=== PATIENT | female | born 1950 | race Caucasian/White ===

== ENCOUNTER 2023-07-12 12:08 | Inpatient (IN) | payer OTHER, MEDICAID ==
[~2023-07-12] VITALS: Ht 160 cm; Wt 66.7 kg
[2023-07-12] MEDS ORDERED: cefTRIAXone 1 GM IVPB PREMIX 50 ML IV ONE (12:15)
[2023-07-12] MEDS ORDERED: NS 1000 ML IV.SOLN IV ONE (12:15)
[2023-07-12 12:19] VITALS: BP_SYST 87; PULSE 82; RESP 16; O2SAT 99
[2023-07-12] MEDS ORDERED: PIPERACILLIN/TAZO 3.375 GM in NS 50 ML IV ONE ×2 (12:30→15:00)
[2023-07-12 12:37] LABS: BASOPHILS % (AUTO) 1.1 % (0.0-2.0); EOSINOPHILS # (AUTO) 0.1 K/uL (0.0-0.4); EOSINOPHILS % (AUTO) 2.5 % (0.0-4.0); HEMATOCRIT 33.1 % (36-48); HEMOGLOBIN 11.1 g/dL (12.0-16.0); LYMPHOCYTES # (AUTO) 1.9 K/uL (1.0-5.5); LYMPHOCYTES % (AUTO) 53.9 % (20.5-51.5); MEAN CORPUSCULAR HEMOGLOBIN 33 pg (27-31); MEAN CORPUSCULAR HGB CONC 34 % (32-36); MEAN CORPUSCULAR VOLUME 99 fL (79.0-98.0); MONOCYTES # (AUTO) 0.3 K/uL (0.0-1.0); MONOCYTES % (AUTO) 9.2 % (1.7-9.3); NEUTROPHILS # (AUTO) 1.2 K/uL (1.8-7.7); NEUTROPHILS % (AUTO) 33.3 % (40.0-70.0); PLATELET COUNT (AUTO) 196 K/uL (130-430); RED BLOOD CELL COUNT(AUTO) 3.34 MIL/uL (4.2-6.2); RED CELL DISTRIBUTION WIDTH 14.4 % (9.0-15.0); WHITE BLOOD COUNT (AUTO) 3.5 K/uL (4.8-10.8)
[2023-07-12 12:54] LABS: INR 1.2 (0.8-1.2)
[2023-07-12] MEDS ORDERED: IBUP200T18 PO (13:04)
[2023-07-12] MEDS ORDERED: APIX5TAB PO (13:04)
[2023-07-12] MEDS ORDERED: PRO40 PO (13:04)
[2023-07-12] MEDS ORDERED: OLAN2.5T29 PO (13:04)
[2023-07-12] MEDS ORDERED: LIP20 PO (13:04)
[2023-07-12] MEDS ORDERED: FOLI-43 PO (13:04)
[2023-07-12] MEDS ORDERED: NITSL SL (13:04)
[2023-07-12] MEDS ORDERED: METO-290 PO (13:04)
[2023-07-12] MEDS ORDERED: PRAM1.5T4 PO (13:04)
[2023-07-12] MEDS ORDERED: LOSA25TA18 PO (13:04)
[2023-07-12] MEDS ORDERED: [UNRECOGNIZED DRUG - CODE] (13:04)
[2023-07-12] MEDS ORDERED: SULF1TAB48 PO (13:04)
[2023-07-12] MEDS ORDERED: MONT-40 PO (13:04)
[2023-07-12] MEDS ORDERED: GABA-529 PO (13:04)
[2023-07-12 13:11] LABS: ALANINE AMINOTRANSFERASE 20 U/L (12-78); ANION GAP 16 (5-15); ASPARTATE AMINOTRANSFERASE 69 U/L (10-37); CALCIUM 9.4 mg/dL (8.4-11.0); CARBON DIOXIDE 17 mmol/L (23-29); CHLORIDE 105 mmol/L (98-107); CREATININE 1.31 mg/dL (0.55-1.30); GLUCOSE 56 mg/dL (74-106); SODIUM SERUM 138 mmol/L (136-145); TOTAL BILIRUBIN 0.6 mg/dL (0.0-1.0); TOTAL PROTEIN, SERUM 5.2 g/dL (6.4-8.3); UREA NITROGEN, BLOOD 4 mg/dL (8-21)
[2023-07-12 13:14] LABS: POTASSIUM 2.9 mmol/L (3.5-5.1)
[2023-07-12] MEDS ORDERED: POTASSIUM CHLORIDE 20 MEQ/PKT PACKET PO ONE (13:30)
[2023-07-12] MEDS ORDERED: ASPIRIN 81 MG TABLET(ECOTRIN) PO ONE (13:30)
[2023-07-12] MEDS ORDERED: PIPERACILLIN/TAZOBACTAM 3.375 GM/VIAL (ZOSYN) IV ONE (13:33)
[2023-07-12] MEDS ORDERED: NOREPINEPHRINE BITARTRATE 4 MG in NS 246 ML IV ONE (13:45)
[2023-07-12] MEDS ORDERED: NACL 0.9% 1,000 ML IV ONE (14:00)
[2023-07-12] MEDS ORDERED: NACL 0.9% 1,000 ML IV SCH (14:00)
[2023-07-12] MEDS ORDERED: GENTAMICIN IN NACL, ISO-OSM 50 ML IV ONE (14:00)
[2023-07-12 14:53] LABS: BILIRUBIN,URINE 1+ (NEGATIVE); BLOOD, URINE 1+ (NEGATIVE); COLOR,URINE YELLOW (YELLOW); GLUCOSE,URINE NEGATIVE (NEGATIVE); KETONES,URINE 2+ (NEGATIVE); LEUKOCYTE ESTERASE ,URINE 3+ (NEGATIVE); NITRITE, URINE NEGATIVE (NEGATIVE); PROTEIN URINE 2+ (NEGATIVE); UROBILINOGEN,URINE 0.2 (0.2-1.0)
[2023-07-12 14:54] LABS: CLARITY/URINE HAZY (CLEAR)
[2023-07-12] MEDS ORDERED: KCL 40 mEq in 100 mL (PREMIX) 100 ML IV ONE (15:15)
[2023-07-12] MEDS ORDERED: NITROGLYCERIN 0.4 MG TAB.SUBL SL PRN (15:30)
[2023-07-12 16:02] LABS: WBC,URINE 20-50 /HPF (0-3)
[2023-07-12 16:03] LABS: BACTERIA,URINE MODERATE /HPF (None Seen); HYALINE CASTS, URINE 0-10 /LPF (None Seen)
[2023-07-12] MEDS ORDERED: GLUCOSE (DEXTROSE) ORAL GEL -Adults PO PRN (16:15)
[2023-07-12] MEDS ORDERED: ACETAMINOPHEN 500 MG TABLET PO PRN (16:15)
[2023-07-12] MEDS ORDERED: ACETAMINOPHEN 325 MG TABLET PO PRN (16:15)
[2023-07-12] MEDS ORDERED: DEXTROSE 50% JECT 50 ML DISP.SYRIN IVP PRN ×2 (16:15)
[2023-07-12] MEDS ORDERED: D5W 1,000 ML IV PRN (16:15)
[2023-07-12] MEDS: POTASSIUM CHLORIDE 20 mEq in 100 mL (PREMIX) 100 ML x 2 doses IV SCH ×2 (16:16→18:06)
[2023-07-12] MEDS: D5LR 1,000 ML IV SCH (16:30)
[2023-07-12] MEDS: PIPERACILLIN/TAZO 3.375/DEX-IS 50 ML IV SCH (18:22)
[2023-07-12] MEDS: MONTELUKAST 10 MG TABLET PO SCH (18:23)
[2023-07-12 21:00] VITALS: BP_SYST 145; PULSE 82; RESP 20; RESP 22; TEMP 97; O2SAT 94; O2SAT 96
[2023-07-12] MEDS: OLANZapine 2.5 MG TABLET PO SCH (21:51)
[2023-07-12] MEDS: POTASSIUM CHLORIDE 20 MEQ TAB.PRT.SR PO SCH (21:51)
[2023-07-12] MEDS: APIXABAN 2.5 MG TABLET PO SCH (21:52)
[2023-07-12] MEDS: PRAMIPEXOLE DI-HCL 0.25 MG TABLET PO SCH (21:52)
[2023-07-12 22:00] VITALS: BP_SYST 114; PULSE 82; PULSE 85; RESP 19; RESP 20; TEMP 97; O2SAT 94; O2SAT 97
[2023-07-12] MEDS: ONDANSETRON HCL 4 MG/2 ML VIAL IVP PRN (22:27)
[2023-07-12 22:53] LABS: ANION GAP 14 (5-15); CALCIUM 8.3 mg/dL (8.4-11.0); CARBON DIOXIDE 16 mmol/L (23-29); CHLORIDE 113 mmol/L (98-107); CREATININE 1.19 mg/dL (0.55-1.30); GLUCOSE 101 mg/dL (74-106); POTASSIUM 3.3 mmol/L (3.5-5.1); SODIUM SERUM 143 mmol/L (136-145); UREA NITROGEN, BLOOD 3 mg/dL (8-21)
[2023-07-12 23:00] VITALS: BP_SYST 99; PULSE 86; RESP 25; O2SAT 93
[2023-07-13] VITALS (27 sets, daily range): BP systolic 96–120; PULSE 81–112; RESP 16–26; TEMP 96.4–98.2; O2SAT 84–99
[2023-07-13] MEDS: PIPERACILLIN/TAZO 3.375/DEX-IS 50 ML IV SCH ×4 (00:37→18:23)
[2023-07-13 06:21] LABS: HEMATOCRIT 30.2 % (36-48); MEAN CORPUSCULAR HEMOGLOBIN 33 pg (27-31); MEAN CORPUSCULAR HGB CONC 33 % (32-36); MEAN CORPUSCULAR VOLUME 100 fL (79.0-98.0); PLATELET COUNT (AUTO) 175 K/uL (130-430); RED BLOOD CELL COUNT(AUTO) 3.03 MIL/uL (4.2-6.2); RED CELL DISTRIBUTION WIDTH 14.2 % (9.0-15.0); WHITE BLOOD COUNT (AUTO) 2.2 K/uL (4.8-10.8)
[2023-07-13 06:34] LABS: ALANINE AMINOTRANSFERASE 16 U/L (12-78); ALBUMIN 1.8 g/dL (3.4-4.8); ANION GAP 14 (5-15); ASPARTATE AMINOTRANSFERASE 62 U/L (10-37); CALCIUM 8.4 mg/dL (8.4-11.0); CARBON DIOXIDE 17 mmol/L (23-29); CHLORIDE 112 mmol/L (98-107); CREATININE 1.12 mg/dL (0.55-1.30); GLUCOSE 95 mg/dL (74-106); POTASSIUM 3.3 mmol/L (3.5-5.1); SODIUM SERUM 143 mmol/L (136-145); TOTAL BILIRUBIN 0.4 mg/dL (0.0-1.0); TOTAL PROTEIN, SERUM 4.3 g/dL (6.4-8.3); UREA NITROGEN, BLOOD 2 mg/dL (8-21)
[2023-07-13 06:48] LABS: PHOSPHORUS 4.3 mg/dL (2.7-4.5)
[2023-07-13 07:46] LABS: CHOLESTEROL 66 mg/dL (<200); HDL CHOLESTEROL 28 mg/dL (>55); TRIGLYCERIDES 96 mg/dL (30-150)
[2023-07-13] MEDS: D5LR 1,000 ML IV SCH ×3 (08:02→22:30)
[2023-07-13] MEDS: APIXABAN 2.5 MG TABLET PO SCH ×2 (09:00→21:00)
[2023-07-13] MEDS: GABAPENTIN 100 MG CAPSULE PO SCH (09:00)
[2023-07-13] MEDS: POTASSIUM CHLORIDE 20 MEQ TAB.PRT.SR PO SCH ×2 (09:00→21:00)
[2023-07-13] MEDS: ATORVASTATIN 20 MG TABLET PO SCH (09:00)
[2023-07-13] MEDS: FOLIC ACID 1 MG TABLET PO SCH (09:00)
[2023-07-13] MEDS: PANTOPRAZOLE SODIUM 40 MG TAB PO SCH (09:00)
[2023-07-13 10:01] LABS: BAND % (MANUAL) 2 % (0-6); BASOPHILS % (MANUAL) 0 % (0-2); EOSINOPHILS % (MANUAL) 1 % (0-7); LYMPHOCYTES % (MANUAL) 63 % (20-46); MONOCYTES % (MANUAL) 6 % (0-11); PLATELET ESTIMATE ADEQUATE (ADEQUATE)
[2023-07-13] MEDS ORDERED: KCL 40 mEq in 100 mL (PREMIX) 100 ML IV ONE (11:15)
[2023-07-13 11:18] LABS: INR 1.1 (0.8-1.2); PROTHROMBIN TIME 11.6 SECS (9.5-12.5)
[2023-07-13] MEDS ORDERED: MAGNESIUM SULFATE 50 ML IV ONE (11:30)
[2023-07-13] MEDS: POTASSIUM CHLORIDE 20 mEq in 100 mL (PREMIX) 100 ML x 2 doses IV SCH ×2 (11:51→14:07)
[2023-07-13 12:04] LABS: ABG O2 SAT% ESTIMATE 97.9 % (94.0-100.0); BLOOD GAS PCO2 31.3 mmHg (35.0-45.0); BLOOD GAS PH 7.335 (7.350-7.450); BLOOD GAS PO2 112.8 mmHg (75.0-100.0)
[2023-07-13 12:07] LABS: BLOOD GAS BASE EXCESS -8.2 mmol/L (-3.0-3.0); BLOOD GAS HCO3 16.3 mmol/L (21.0-27.0)
[2023-07-13 12:08] LABS: ALLEN'S TEST POSITIVE (P)
[2023-07-13] MEDS: IPRATROPIUM/ALBUTEROL SULFATE 3 ML AMPUL.NEB (DUONEB) INH SCH ×2 (13:00→19:30)
[2023-07-13] MEDS ORDERED: SODIUM BICARBONATE 8.4% JECT 50 MEQ/50 ML SYRINGE IVP ONE (14:00)
[2023-07-13] MEDS: MICAFUNGIN SODIUM 150 MG in NS 100 ML IV SCH (14:02)
[2023-07-13] MEDS: MONTELUKAST 10 MG TABLET PO SCH (15:57)
[2023-07-13] MEDS ORDERED: NOREPINEPHRINE BITARTRATE 4 MG in NS 246 ML IV PRN (16:15)
[2023-07-13 20:05] LABS: BILIRUBIN,URINE 2+ (NEGATIVE); COLOR,URINE YELLOW (YELLOW); GLUCOSE,URINE NEGATIVE (NEGATIVE); KETONES,URINE 1+ (NEGATIVE); LEUKOCYTE ESTERASE ,URINE 1+ (NEGATIVE); NITRITE, URINE NEGATIVE (NEGATIVE); PROTEIN URINE 1+ (NEGATIVE); UROBILINOGEN,URINE 0.2 (0.2-1.0)
[2023-07-13 20:08] LABS: BLOOD, URINE TRACE (NEGATIVE); CLARITY/URINE SLIGHTLY HAZY (CLEAR)
[2023-07-13 20:27] LABS: BACTERIA,URINE FEW /HPF (None Seen); COARSE GRANULAR CASTS,URINE 0-10 /LPF (None Seen); MUCUS,URINE None Seen /LPF (None Seen); RBC,URINE 0-3 /HPF (0-3); YEAST,URINE Few /HPF (None Seen)
[2023-07-13] MEDS: OLANZapine 2.5 MG TABLET PO SCH (21:00)
[2023-07-13] MEDS: PRAMIPEXOLE DI-HCL 0.25 MG TABLET PO SCH (21:00)
[2023-07-14] VITALS (30 sets, daily range): BP systolic 93–132; PULSE 85–114; RESP 14–38; TEMP 97.1–98.5; O2SAT 2–100
[2023-07-14] MEDS: BUDESONIDE 0.5 MG/2 ML AMPUL.NEB INH SCH ×3 (00:54→20:05)
[2023-07-14] MEDS: IPRATROPIUM/ALBUTEROL SULFATE 3 ML AMPUL.NEB (DUONEB) INH SCH ×4 (00:55→19:16)
[2023-07-14] MEDS: PIPERACILLIN/TAZO 3.375/DEX-IS 50 ML IV SCH ×4 (02:04→17:17)
[2023-07-14 05:29] LABS: BASOPHILS % (AUTO) 0.8 % (0.0-2.0); EOSINOPHILS # (AUTO) 0.1 K/uL (0.0-0.4); EOSINOPHILS % (AUTO) 3.4 % (0.0-4.0); HEMATOCRIT 31.9 % (36-48); HEMOGLOBIN 10.8 g/dL (12.0-16.0); LYMPHOCYTES # (AUTO) 1.5 K/uL (1.0-5.5); LYMPHOCYTES % (AUTO) 40.3 % (20.5-51.5); MEAN CORPUSCULAR HEMOGLOBIN 33 pg (27-31); MEAN CORPUSCULAR HGB CONC 34 % (32-36); MEAN CORPUSCULAR VOLUME 98 fL (79.0-98.0); MONOCYTES # (AUTO) 0.6 K/uL (0.0-1.0); MONOCYTES % (AUTO) 15.8 % (1.7-9.3); NEUTROPHILS # (AUTO) 1.5 K/uL (1.8-7.7); NEUTROPHILS % (AUTO) 39.7 % (40.0-70.0); PLATELET COUNT (AUTO) 162 K/uL (130-430); RED BLOOD CELL COUNT(AUTO) 3.27 MIL/uL (4.2-6.2); RED CELL DISTRIBUTION WIDTH 14.2 % (9.0-15.0); WHITE BLOOD COUNT (AUTO) 3.7 K/uL (4.8-10.8)
[2023-07-14 06:21] LABS: ALANINE AMINOTRANSFERASE 12 U/L (12-78); ALBUMIN 1.7 g/dL (3.4-4.8); ANION GAP 9 (5-15); ASPARTATE AMINOTRANSFERASE 52 U/L (10-37); CALCIUM 8.7 mg/dL (8.4-11.0); CARBON DIOXIDE 24 mmol/L (23-29); CHLORIDE 113 mmol/L (98-107); GLUCOSE 123 mg/dL (74-106); SODIUM SERUM 146 mmol/L (136-145); TOTAL BILIRUBIN 0.5 mg/dL (0.0-1.0); TOTAL PROTEIN, SERUM 4.8 g/dL (6.4-8.3); UREA NITROGEN, BLOOD 1 mg/dL (8-21)
[2023-07-14 06:27] LABS: POTASSIUM 2.7 mmol/L (3.5-5.1)
[2023-07-14] MEDS: D5LR 1,000 ML IV SCH (08:51)
[2023-07-14] MEDS: APIXABAN 2.5 MG TABLET PO SCH (09:00)
[2023-07-14] MEDS: FOLIC ACID 1 MG TABLET PO SCH ×2 (09:00→09:21)
[2023-07-14] MEDS: ATORVASTATIN 20 MG TABLET PO SCH (09:20)
[2023-07-14] MEDS: PANTOPRAZOLE SODIUM 40 MG TAB PO SCH (09:20)
[2023-07-14] MEDS: GABAPENTIN 100 MG CAPSULE PO SCH (09:21)
[2023-07-14] MEDS: POTASSIUM CHLORIDE 20 MEQ TAB.PRT.SR PO SCH ×2 (09:21→21:25)
[2023-07-14] MEDS ORDERED: ENOXAPARIN SODIUM 40 MG/0.4 ML SYRINGE SUBCUT ONE (13:30)
[2023-07-14] MEDS ORDERED: KCL 40 mEq in 100 mL (PREMIX) 100 ML IV ONE (13:30)
[2023-07-14] MEDS: MICAFUNGIN SODIUM 150 MG in NS 100 ML IV SCH (14:26)
[2023-07-14] MEDS: ALBUMIN HUMAN 25% 50 ML IV SCH ×3 (14:27→23:10)
[2023-07-14] MEDS: KCL 20 mEq in 100 mL (PREMIX) 100 ML IV SCH ×2 (14:29→17:15)
[2023-07-14] MEDS: KCL 40 mEq in D5W 1000 mL 1,000 ML IV SCH (14:30)
[2023-07-14] MEDS: ONDANSETRON HCL 4 MG/2 ML VIAL IVP PRN (14:38)
[2023-07-14] MEDS: MONTELUKAST 10 MG TABLET PO SCH (17:25)
[2023-07-14] MEDS: OLANZapine 2.5 MG TABLET PO SCH (21:25)
[2023-07-14] MEDS: PRAMIPEXOLE DI-HCL 0.25 MG TABLET PO SCH (21:27)
[2023-07-15] VITALS (22 sets, daily range): BP systolic 94–129; PULSE 69–116; RESP 12–39; TEMP 97.3–98.4; O2SAT 90–99
[2023-07-15] MEDS: PIPERACILLIN/TAZO 3.375/DEX-IS 50 ML IV SCH ×2 (00:33→04:59)
[2023-07-15] MEDS: IPRATROPIUM/ALBUTEROL SULFATE 3 ML AMPUL.NEB (DUONEB) INH SCH ×4 (00:40→20:25)
[2023-07-15 04:57] LABS: EOSINOPHILS # (AUTO) 0.1 K/uL (0.0-0.4); EOSINOPHILS % (AUTO) 2.4 % (0.0-4.0); HEMATOCRIT 24.6 % (36-48); HEMOGLOBIN 8.3 g/dL (12.0-16.0); LYMPHOCYTES # (AUTO) 1.3 K/uL (1.0-5.5); LYMPHOCYTES % (AUTO) 56.2 % (20.5-51.5); MEAN CORPUSCULAR HEMOGLOBIN 33 pg (27-31); MEAN CORPUSCULAR HGB CONC 34 % (32-36); MEAN CORPUSCULAR VOLUME 97 fL (79.0-98.0); MONOCYTES # (AUTO) 0.3 K/uL (0.0-1.0); MONOCYTES % (AUTO) 13.1 % (1.7-9.3); NEUTROPHILS % (AUTO) 28.3 % (40.0-70.0); PLATELET COUNT (AUTO) 126 K/uL (130-430); RED BLOOD CELL COUNT(AUTO) 2.54 MIL/uL (4.2-6.2); RED CELL DISTRIBUTION WIDTH 13.9 % (9.0-15.0); WHITE BLOOD COUNT (AUTO) 2.4 K/uL (4.8-10.8)
[2023-07-15] MEDS: KCL 40 mEq in D5W 1000 mL 1,000 ML IV SCH ×3 (05:00→21:36)
[2023-07-15 05:02] LABS: NEUTROPHILS # (AUTO) 0.7 K/uL (1.8-7.7)
[2023-07-15 05:22] LABS: ANION GAP 8 (5-15); CALCIUM 9.2 mg/dL (8.4-11.0); CARBON DIOXIDE 24 mmol/L (23-29); CHLORIDE 111 mmol/L (98-107); CREATININE 0.96 mg/dL (0.55-1.30); GLUCOSE 111 mg/dL (74-106); SODIUM SERUM 143 mmol/L (136-145); UREA NITROGEN, BLOOD 1 mg/dL (8-21)
[2023-07-15 05:33] LABS: POTASSIUM 2.9 mmol/L (3.5-5.1)
[2023-07-15] MEDS: BUDESONIDE 0.5 MG/2 ML AMPUL.NEB INH SCH ×2 (09:00→20:26)
[2023-07-15] MEDS: PANTOPRAZOLE SODIUM 40 MG TAB PO SCH (09:00)
[2023-07-15] MEDS: ATORVASTATIN 20 MG TABLET PO SCH (09:00)
[2023-07-15] MEDS: GABAPENTIN 100 MG CAPSULE PO SCH (09:00)
[2023-07-15] MEDS: POTASSIUM CHLORIDE 20 MEQ TAB.PRT.SR PO SCH ×3 (09:00→21:37)
[2023-07-15] MEDS: ENOXAPARIN SODIUM 40 MG/0.4 ML SYRINGE SUBCUT SCH (10:53)
[2023-07-15] MEDS ORDERED: KCL 40 mEq in 100 mL (PREMIX) 100 ML IV ONE (12:15)
[2023-07-15] MEDS: POTASSIUM CHLORIDE 20 mEq in 100 mL (PREMIX) 100 ML x 2 doses IV SCH ×2 (12:50→16:09)
[2023-07-15] MEDS: MICAFUNGIN SODIUM 150 MG in NS 100 ML IV SCH (14:10)
[2023-07-15] MEDS ORDERED: DEXTROSE 50% JECT 50 ML DISP.SYRIN IVP PRN (16:45)
[2023-07-15] MEDS ORDERED: *TPN PER PHARMACY XX PRN (16:45)
[2023-07-15 16:57] LABS: ABG O2 SAT% ESTIMATE 91.4 % (94.0-100.0); BLOOD GAS BASE EXCESS -1.6 mmol/L (-3.0-3.0); BLOOD GAS HCO3 23.2 mmol/L (21.0-27.0); BLOOD GAS PCO2 39.4 mmHg (35.0-45.0); BLOOD GAS PH 7.387 (7.350-7.450); BLOOD GAS PO2 61.6 mmHg (75.0-100.0)
[2023-07-15 17:04] LABS: ALLEN'S TEST POSITIVE (P)
[2023-07-15] MEDS: MONTELUKAST 10 MG TABLET PO SCH (18:00)
[2023-07-15] MEDS: CEFEPIME 2 GM in D5W 100 ML IV SCH (21:37)
[2023-07-15] MEDS: PRAMIPEXOLE DI-HCL 0.25 MG TABLET PO SCH (21:37)
[2023-07-15] MEDS: OLANZapine 2.5 MG TABLET PO SCH (21:37)
[2023-07-16] VITALS (25 sets, daily range): BP systolic 118–158; PULSE 99–133; RESP 20–25; TEMP 98.2–99.2; O2SAT 94–100
[2023-07-16] MEDS: METOCLOPRAMIDE HCL 10 MG/2 ML VIAL IVP SCH ×4 (00:31→18:24)
[2023-07-16] MEDS: IPRATROPIUM/ALBUTEROL SULFATE 3 ML AMPUL.NEB (DUONEB) INH SCH ×4 (01:46→20:05)
[2023-07-16] MEDS ORDERED: DEXAMETHASONE SOD PHOSPHATE 4 MG/ML VIAL IVP ONE (05:30)
[2023-07-16] MEDS ORDERED: DIPHENHYDRAMINE INJ 50 MG/ML VIAL IVP ONE (05:30)
[2023-07-16 05:59] LABS: BASOPHILS % (AUTO) 0.8 % (0.0-2.0); EOSINOPHILS # (AUTO) 0.1 K/uL (0.0-0.4); EOSINOPHILS % (AUTO) 3.7 % (0.0-4.0); HEMATOCRIT 27.7 % (36-48); HEMOGLOBIN 9.2 g/dL (12.0-16.0); LYMPHOCYTES # (AUTO) 1.4 K/uL (1.0-5.5); LYMPHOCYTES % (AUTO) 39.9 % (20.5-51.5); MEAN CORPUSCULAR HEMOGLOBIN 33 pg (27-31); MEAN CORPUSCULAR HGB CONC 33 % (32-36); MEAN CORPUSCULAR VOLUME 98 fL (79.0-98.0); MONOCYTES # (AUTO) 0.6 K/uL (0.0-1.0); MONOCYTES % (AUTO) 17.1 % (1.7-9.3); NEUTROPHILS # (AUTO) 1.4 K/uL (1.8-7.7); NEUTROPHILS % (AUTO) 38.5 % (40.0-70.0); PLATELET COUNT (AUTO) 141 K/uL (130-430); RED BLOOD CELL COUNT(AUTO) 2.83 MIL/uL (4.2-6.2); RED CELL DISTRIBUTION WIDTH 13.8 % (9.0-15.0); WHITE BLOOD COUNT (AUTO) 3.6 K/uL (4.8-10.8)
[2023-07-16] MEDS: KCL 40 mEq in D5W 1000 mL 1,000 ML IV SCH ×3 (06:00→21:04)
[2023-07-16 06:23] LABS: ALANINE AMINOTRANSFERASE 12 U/L (12-78); ALBUMIN 2.2 g/dL (3.4-4.8); ANION GAP 10 (5-15); ASPARTATE AMINOTRANSFERASE 43 U/L (10-37); CALCIUM 9.9 mg/dL (8.4-11.0); CARBON DIOXIDE 23 mmol/L (23-29); CHLORIDE 109 mmol/L (98-107); CHOLESTEROL < 50 mg/dL (<200); GLUCOSE 105 mg/dL (74-106); HDL CHOLESTEROL 22 mg/dL (>55); PHOSPHORUS 3.7 mg/dL (2.7-4.5); SODIUM SERUM 142 mmol/L (136-145); TOTAL BILIRUBIN 0.8 mg/dL (0.0-1.0); TOTAL PROTEIN, SERUM 4.9 g/dL (6.4-8.3); TRIGLYCERIDES 85 mg/dL (30-150); UREA NITROGEN, BLOOD 1 mg/dL (8-21)
[2023-07-16] MEDS: BUDESONIDE 0.5 MG/2 ML AMPUL.NEB INH SCH ×2 (07:53→21:02)
[2023-07-16] MEDS: POTASSIUM CHLORIDE 20 MEQ TAB.PRT.SR PO SCH ×2 (08:32→21:42)
[2023-07-16] MEDS: ATORVASTATIN 20 MG TABLET PO SCH (08:32)
[2023-07-16] MEDS: FOLIC ACID 1 MG TABLET PO SCH (08:32)
[2023-07-16] MEDS: GABAPENTIN 100 MG CAPSULE PO SCH (08:33)
[2023-07-16] MEDS: ENOXAPARIN SODIUM 40 MG/0.4 ML SYRINGE SUBCUT SCH (08:33)
[2023-07-16] MEDS: PANTOPRAZOLE SODIUM 40 MG TAB PO SCH (08:33)
[2023-07-16] MEDS: CEFEPIME 2 GM in D5W 100 ML IV SCH ×2 (09:00→21:50)
[2023-07-16] MEDS ORDERED: MIDAZOLAM HCL 5 MG/5 ML VIAL ONE (09:24)
[2023-07-16] MEDS ORDERED: fentaNYL CITRATE/PF 100 MCG/2 ML AMP ONE (09:24)
[2023-07-16] MEDS ORDERED: SUCCINYLCHOLINE CHLORIDE 20 MG/ML(QUELICIN) IVP ONE (10:45)
[2023-07-16] MEDS ORDERED: ETOMIDATE 20 MG/ 10 ML VIAL (AMIDATE) IVP ONE (10:45)
[2023-07-16] MEDS ORDERED: PROPOFOL DRIP 100 ML IV ONE (11:15)
[2023-07-16 11:28] LABS: ABG O2 SAT% ESTIMATE 99.8 % (94.0-100.0); BLOOD GAS BASE EXCESS -4.2 mmol/L (-3.0-3.0); BLOOD GAS PCO2 33.5 mmHg (35.0-45.0); BLOOD GAS PO2 369.4 mmHg (75.0-100.0)
[2023-07-16 11:31] LABS: ALLEN'S TEST POSITIVE (P)
[2023-07-16 11:35] LABS: BLOOD GAS HCO3 19.8 mmol/L (21.0-27.0)
[2023-07-16] MEDS ORDERED: ALBUTEROL SULFATE 0.083% 2.5 MG/3 ML VIAL.NEB INH ONE (11:44)
[2023-07-16 12:34] LABS: ABG O2 SAT% ESTIMATE 32.3 % (94.0-100.0); BLOOD GAS BASE EXCESS -12.7 mmol/L (-3.0-3.0); BLOOD GAS HCO3 23.7 mmol/L (21.0-27.0); BLOOD GAS PCO2 127.6 mmHg (35.0-45.0); BLOOD GAS PH 6.887 (7.350-7.450); BLOOD GAS PO2 33.9 mmHg (75.0-100.0)
[2023-07-16 12:35] LABS: ALLEN'S TEST POSITIVE (P)
[2023-07-16] MEDS: INSULIN REGULAR, HUMAN 100 UNITS/ML, 3 ML VIAL (humuLIN R) SUBCUT PRN ×2 (13:36→18:14)
[2023-07-16] MEDS: MICAFUNGIN SODIUM 150 MG in NS 100 ML IV SCH (14:19)
[2023-07-16] MEDS ORDERED: MORPHINE 2 MG/ML INJ. SYRINGE IVP PRN (17:45)
[2023-07-16] MEDS ORDERED: NALOXONE HCL 0.4 MG/ML AMP (NARCAN) IVP PRN (17:45)
[2023-07-16] MEDS ORDERED: MORPHINE 4 MG INJ. 4 MG/ML VIAL IVP PRN (17:45)
[2023-07-16] MEDS: MONTELUKAST 10 MG TABLET PO SCH (18:16)
[2023-07-16] MEDS: METOCLOPRAMIDE HCL 10 MG TABLET PO PRN ×4 (18:16→18:19)
[2023-07-16 18:45] LABS: FREE T4 (FREE THYROXINE) 1.1 ng/dL (0.6-1.6); THYROID STIMULATING HORMONE 2.43 uIu/mL (0.34-4.82)
[2023-07-16] MEDS ORDERED: MAGNESIUM SULFATE 4 GM in D5W 250 ML IV ONE (20:00)
[2023-07-16] MEDS: PROPOFOL DRIP 100 ML IV PRN (20:58)
[2023-07-16] MEDS ORDERED: POTASSIUM ACETATE IV SCH ×8 (21:00)
[2023-07-16] MEDS ORDERED: TPN CENTRAL IV SCH ×8 (21:00)
[2023-07-16] MEDS ORDERED: [UNRECOGNIZED DRUG - OTHER] IV SCH ×8 (21:00)
[2023-07-16] MEDS ORDERED: K PHOS IV SCH ×8 (21:00)
[2023-07-16] MEDS: METHYLPREDNISOLONE SOD SUCC 40 MG/ML VIAL IVP SCH (21:00)
[2023-07-16] MEDS ORDERED: MAGNESIUM SULFATE IV SCH ×8 (21:00)
[2023-07-16] MEDS ORDERED: METOPROLOL TARTRATE 5 MG/5 ML VIAL IVP PRN (21:30)
[2023-07-16] MEDS: PRAMIPEXOLE DI-HCL 0.25 MG TABLET PO SCH (21:42)
[2023-07-16] MEDS: OLANZapine 2.5 MG TABLET PO SCH (21:42)
[2023-07-16] MEDS ORDERED: METOPROLOL TARTRATE 5 MG/5 ML VIAL ONE (21:56)
[2023-07-17] VITALS (36 sets, daily range): BP systolic 116–158; PULSE 86–109; RESP 19–21; TEMP 97.1–98.5; O2SAT 96–100
[2023-07-17] MEDS: METOCLOPRAMIDE HCL 10 MG/2 ML VIAL IVP SCH ×5 (00:36→23:37)
[2023-07-17] MEDS: IPRATROPIUM/ALBUTEROL SULFATE 3 ML AMPUL.NEB (DUONEB) INH SCH ×4 (01:03→19:59)
[2023-07-17] MEDS: PROPOFOL DRIP 100 ML IV PRN ×4 (02:23→21:04)
[2023-07-17 04:53] LABS: BASOPHILS % (AUTO) 0.5 % (0.0-2.0); EOSINOPHILS # (AUTO) 0.1 K/uL (0.0-0.4); EOSINOPHILS % (AUTO) 1.9 % (0.0-4.0); HEMATOCRIT 29.8 % (36-48); HEMOGLOBIN 10.2 g/dL (12.0-16.0); LYMPHOCYTES # (AUTO) 0.6 K/uL (1.0-5.5); LYMPHOCYTES % (AUTO) 14.3 % (20.5-51.5); MEAN CORPUSCULAR HEMOGLOBIN 33 pg (27-31); MEAN CORPUSCULAR HGB CONC 34 % (32-36); MEAN CORPUSCULAR VOLUME 97 fL (79.0-98.0); MONOCYTES # (AUTO) 0.4 K/uL (0.0-1.0); MONOCYTES % (AUTO) 8.2 % (1.7-9.3); NEUTROPHILS # (AUTO) 3.3 K/uL (1.8-7.7); NEUTROPHILS % (AUTO) 75.1 % (40.0-70.0); PLATELET COUNT (AUTO) 173 K/uL (130-430); RED BLOOD CELL COUNT(AUTO) 3.08 MIL/uL (4.2-6.2); RED CELL DISTRIBUTION WIDTH 13.5 % (9.0-15.0); WHITE BLOOD COUNT (AUTO) 4.5 K/uL (4.8-10.8)
[2023-07-17 05:17] LABS: ALANINE AMINOTRANSFERASE 9 U/L (12-78); ALBUMIN 2.3 g/dL (3.4-4.8); ANION GAP 8 (5-15); ASPARTATE AMINOTRANSFERASE 37 U/L (10-37); CARBON DIOXIDE 25 mmol/L (23-29); CHLORIDE 108 mmol/L (98-107); CREATININE 0.79 mg/dL (0.55-1.30); GLUCOSE 167 mg/dL (74-106); PHOSPHORUS 2.9 mg/dL (2.7-4.5); POTASSIUM 4.6 mmol/L (3.5-5.1); SODIUM SERUM 141 mmol/L (136-145); TOTAL BILIRUBIN 0.7 mg/dL (0.0-1.0); TOTAL IRON BIND. CAPACITY 56 ug/dL (250-450); TOTAL PROTEIN, SERUM 5.3 g/dL (6.4-8.3); UREA NITROGEN, BLOOD 3 mg/dL (8-21)
[2023-07-17] MEDS: ATORVASTATIN 20 MG TABLET PO SCH (08:39)
[2023-07-17] MEDS: FOLIC ACID 1 MG TABLET PO SCH (08:40)
[2023-07-17] MEDS: GABAPENTIN 100 MG CAPSULE PO SCH (08:41)
[2023-07-17] MEDS: METHYLPREDNISOLONE SOD SUCC 40 MG/ML VIAL IVP SCH ×2 (08:41→21:01)
[2023-07-17] MEDS: PANTOPRAZOLE SODIUM 40 MG TAB PO SCH (08:41)
[2023-07-17] MEDS: CEFEPIME 2 GM in D5W 100 ML IV SCH ×2 (08:42→21:01)
[2023-07-17] MEDS: ENOXAPARIN SODIUM 40 MG/0.4 ML SYRINGE SUBCUT SCH (08:43)
[2023-07-17] MEDS: POTASSIUM CHLORIDE 20 MEQ TAB.PRT.SR PO SCH ×2 (08:43→21:01)
[2023-07-17 10:02] LABS: ABG O2 SAT% ESTIMATE 98.3 % (94.0-100.0); BLOOD GAS BASE EXCESS -0.4 mmol/L (-3.0-3.0); BLOOD GAS HCO3 22.1 mmol/L (21.0-27.0); BLOOD GAS PCO2 30.7 mmHg (35.0-45.0); BLOOD GAS PH 7.475 (7.350-7.450); BLOOD GAS PO2 107.3 mmHg (75.0-100.0)
[2023-07-17 10:08] LABS: ALLEN'S TEST POSITIVE (P)
[2023-07-17] MEDS: BUDESONIDE 0.5 MG/2 ML AMPUL.NEB INH SCH ×2 (10:15→20:21)
[2023-07-17] MEDS ORDERED: SODIUM CHLORIDE IV SCH ×16 (10:45→21:00)
[2023-07-17] MEDS ORDERED: [UNRECOGNIZED DRUG - OTHER] IV SCH ×16 (10:45→21:00)
[2023-07-17] MEDS ORDERED: POTASSIUM ACETATE IV SCH ×16 (10:45→21:00)
[2023-07-17] MEDS ORDERED: TPN CENTRAL IV SCH ×16 (10:45→21:00)
[2023-07-17] MEDS ORDERED: K PHOS IV SCH ×16 (10:45→21:00)
[2023-07-17] MEDS: INSULIN REGULAR, HUMAN 100 UNITS/ML, 3 ML VIAL (humuLIN R) SUBCUT PRN ×3 (11:44→23:39)
[2023-07-17] MEDS: MICAFUNGIN SODIUM 150 MG in NS 100 ML IV SCH (13:59)
[2023-07-17] MEDS: KCL 40 mEq in D5W 1000 mL 1,000 ML IV SCH (14:03)
[2023-07-17] MEDS: metroNIDAZOLE 500 mg/NS 100 ML IV SCH ×2 (15:14→21:00)
[2023-07-17] MEDS: MONTELUKAST 10 MG TABLET PO SCH (17:43)
[2023-07-17] MEDS ORDERED: FUROSEMIDE 40 MG/4 ML VIAL ONE (18:40)
[2023-07-17] MEDS: OLANZapine 2.5 MG TABLET PO SCH (21:02)
[2023-07-17] MEDS: PRAMIPEXOLE DI-HCL 0.25 MG TABLET PO SCH (21:02)
[2023-07-18] VITALS (35 sets, daily range): BP systolic 101–172; PULSE 87–120; RESP 16–32; TEMP 97.5–99.5; O2SAT 94–99
[2023-07-18] MEDS: IPRATROPIUM/ALBUTEROL SULFATE 3 ML AMPUL.NEB (DUONEB) INH SCH ×4 (01:13→19:39)
[2023-07-18] MEDS: PROPOFOL DRIP 100 ML IV PRN ×3 (03:15→18:24)
[2023-07-18 05:21] LABS: BASOPHILS % (AUTO) 1.1 % (0.0-2.0); HEMATOCRIT 26.6 % (36-48); HEMOGLOBIN 8.9 g/dL (12.0-16.0); LYMPHOCYTES # (AUTO) 0.3 K/uL (1.0-5.5); LYMPHOCYTES % (AUTO) 8.8 % (20.5-51.5); MEAN CORPUSCULAR HEMOGLOBIN 33 pg (27-31); MEAN CORPUSCULAR HGB CONC 34 % (32-36); MEAN CORPUSCULAR VOLUME 99 fL (79.0-98.0); MONOCYTES # (AUTO) 0.1 K/uL (0.0-1.0); MONOCYTES % (AUTO) 3.4 % (1.7-9.3); NEUTROPHILS # (AUTO) 3.2 K/uL (1.8-7.7); NEUTROPHILS % (AUTO) 86.7 % (40.0-70.0); PLATELET COUNT (AUTO) 174 K/uL (130-430); RED CELL DISTRIBUTION WIDTH 13.4 % (9.0-15.0); WHITE BLOOD COUNT (AUTO) 3.7 K/uL (4.8-10.8)
[2023-07-18] MEDS: METOCLOPRAMIDE HCL 10 MG/2 ML VIAL IVP SCH ×4 (05:28→23:40)
[2023-07-18] MEDS: metroNIDAZOLE 500 mg/NS 100 ML IV SCH ×3 (05:28→23:40)
[2023-07-18] MEDS: INSULIN REGULAR, HUMAN 100 UNITS/ML, 3 ML VIAL (humuLIN R) SUBCUT PRN ×4 (05:32→23:52)
[2023-07-18 06:31] LABS: ALANINE AMINOTRANSFERASE 7 U/L (12-78); ALBUMIN 1.9 g/dL (3.4-4.8); ANION GAP 6 (5-15); ASPARTATE AMINOTRANSFERASE 38 U/L (10-37); CALCIUM 8.9 mg/dL (8.4-11.0); CARBON DIOXIDE 24 mmol/L (23-29); CHLORIDE 107 mmol/L (98-107); CREATININE 0.83 mg/dL (0.55-1.30); GLUCOSE 212 mg/dL (74-106); PHOSPHORUS 3.2 mg/dL (2.7-4.5); POTASSIUM 4.7 mmol/L (3.5-5.1); SODIUM SERUM 137 mmol/L (136-145); TOTAL BILIRUBIN 0.4 mg/dL (0.0-1.0); TOTAL PROTEIN, SERUM 4.8 g/dL (6.4-8.3); UREA NITROGEN, BLOOD 11 mg/dL (8-21)
[2023-07-18] MEDS: BUDESONIDE 0.5 MG/2 ML AMPUL.NEB INH SCH ×2 (07:20→19:39)
[2023-07-18 08:06] LABS: FOLATE (FOLIC ACID) 11.7 ng/mL (>3.0)
[2023-07-18] MEDS: FOLIC ACID 1 MG TABLET PO SCH (08:47)
[2023-07-18] MEDS: GABAPENTIN 100 MG CAPSULE PO SCH (08:47)
[2023-07-18] MEDS: ATORVASTATIN 20 MG TABLET PO SCH (08:48)
[2023-07-18] MEDS: POTASSIUM CHLORIDE 20 MEQ TAB.PRT.SR PO SCH ×2 (08:48→20:36)
[2023-07-18] MEDS: CEFEPIME 2 GM in D5W 100 ML IV SCH ×2 (08:48→20:34)
[2023-07-18] MEDS: PANTOPRAZOLE SODIUM 40 MG TAB PO SCH (08:48)
[2023-07-18] MEDS: METHYLPREDNISOLONE SOD SUCC 40 MG/ML VIAL IVP SCH ×2 (08:49→20:35)
[2023-07-18] MEDS: ENOXAPARIN SODIUM 40 MG/0.4 ML SYRINGE SUBCUT SCH (08:50)
[2023-07-18 15:20] LABS: ABG O2 SAT% ESTIMATE 97.1 % (94.0-100.0); BLOOD GAS BASE EXCESS -1.7 mmol/L (-3.0-3.0); BLOOD GAS HCO3 21.1 mmol/L (21.0-27.0); BLOOD GAS PCO2 30.8 mmHg (35.0-45.0); BLOOD GAS PH 7.453 (7.350-7.450); BLOOD GAS PO2 86.9 mmHg (75.0-100.0)
[2023-07-18 15:21] LABS: ALLEN'S TEST POSITIVE (P)
[2023-07-18] MEDS: MICAFUNGIN SODIUM 150 MG in NS 100 ML IV SCH (16:27)
[2023-07-18] MEDS: MONTELUKAST 10 MG TABLET PO SCH ×2 (17:50→18:00)
[2023-07-18] MEDS: OLANZapine 2.5 MG TABLET PO SCH (20:37)
[2023-07-18] MEDS: PRAMIPEXOLE DI-HCL 0.25 MG TABLET PO SCH (20:37)
[2023-07-18] MEDS ORDERED: FUROSEMIDE 40 MG/4 ML VIAL ONE (20:49)
[2023-07-19] VITALS (32 sets, daily range): BP systolic 110–170; PULSE 75–108; RESP 19–28; TEMP 97.3–98.6; O2SAT 94–98
[2023-07-19] MEDS: INSULIN REGULAR, HUMAN 100 UNITS/ML, 3 ML VIAL (humuLIN R) SUBCUT PRN ×2 (00:04→17:52)
[2023-07-19] MEDS: IPRATROPIUM/ALBUTEROL SULFATE 3 ML AMPUL.NEB (DUONEB) INH SCH ×4 (01:02→19:20)
[2023-07-19] MEDS: PROPOFOL DRIP 100 ML IV PRN ×2 (01:12→06:06)
[2023-07-19 05:50] LABS: BASOPHILS % (AUTO) 0.2 % (0.0-2.0); EOSINOPHILS % (AUTO) 0.6 % (0.0-4.0); HEMATOCRIT 25.6 % (36-48); HEMOGLOBIN 8.8 g/dL (12.0-16.0); LYMPHOCYTES # (AUTO) 0.4 K/uL (1.0-5.5); LYMPHOCYTES % (AUTO) 12.2 % (20.5-51.5); MEAN CORPUSCULAR HEMOGLOBIN 34 pg (27-31); MEAN CORPUSCULAR HGB CONC 34 % (32-36); MEAN CORPUSCULAR VOLUME 98 fL (79.0-98.0); MONOCYTES # (AUTO) 0.3 K/uL (0.0-1.0); MONOCYTES % (AUTO) 10.2 % (1.7-9.3); NEUTROPHILS # (AUTO) 2.6 K/uL (1.8-7.7); NEUTROPHILS % (AUTO) 76.8 % (40.0-70.0); PLATELET COUNT (AUTO) 195 K/uL (130-430); RED CELL DISTRIBUTION WIDTH 13.7 % (9.0-15.0); WHITE BLOOD COUNT (AUTO) 3.4 K/uL (4.8-10.8)
[2023-07-19 06:06] LABS: ALANINE AMINOTRANSFERASE 20 U/L (12-78); ALBUMIN 1.9 g/dL (3.4-4.8); ANION GAP 6 (5-15); ASPARTATE AMINOTRANSFERASE 64 U/L (10-37); CALCIUM 8.1 mg/dL (8.4-11.0); CARBON DIOXIDE 26 mmol/L (23-29); CHLORIDE 108 mmol/L (98-107); CREATININE 0.96 mg/dL (0.55-1.30); GLUCOSE 176 mg/dL (74-106); POTASSIUM 4.6 mmol/L (3.5-5.1); SODIUM SERUM 140 mmol/L (136-145); TOTAL BILIRUBIN 0.4 mg/dL (0.0-1.0); TOTAL PROTEIN, SERUM 4.8 g/dL (6.4-8.3); UREA NITROGEN, BLOOD 28 mg/dL (8-21)
[2023-07-19] MEDS: metroNIDAZOLE 500 mg/NS 100 ML IV SCH ×3 (06:07→22:00)
[2023-07-19] MEDS: METOCLOPRAMIDE HCL 10 MG/2 ML VIAL IVP SCH ×3 (06:08→17:39)
[2023-07-19] MEDS: BUDESONIDE 0.5 MG/2 ML AMPUL.NEB INH SCH ×2 (07:08→21:15)
[2023-07-19] MEDS: METHYLPREDNISOLONE SOD SUCC 40 MG/ML VIAL IVP SCH ×2 (08:50→20:45)
[2023-07-19] MEDS: ENOXAPARIN SODIUM 40 MG/0.4 ML SYRINGE SUBCUT SCH (08:50)
[2023-07-19] MEDS: GABAPENTIN 100 MG CAPSULE PO SCH (08:50)
[2023-07-19] MEDS: CEFEPIME 2 GM in D5W 100 ML IV SCH ×2 (08:50→20:45)
[2023-07-19] MEDS: PANTOPRAZOLE SODIUM 40 MG TAB PO SCH (08:50)
[2023-07-19] MEDS: ATORVASTATIN 20 MG TABLET PO SCH (08:50)
[2023-07-19] MEDS: FOLIC ACID 1 MG TABLET PO SCH (08:50)
[2023-07-19] MEDS: POTASSIUM CHLORIDE 20 MEQ TAB.PRT.SR PO SCH ×2 (08:51→20:46)
[2023-07-19 11:08] LABS: ABG O2 SAT% ESTIMATE 97.1 % (94.0-100.0); BLOOD GAS BASE EXCESS 1.3 mmol/L (-3.0-3.0); BLOOD GAS PCO2 37.2 mmHg (35.0-45.0); BLOOD GAS PH 7.446 (7.350-7.450); BLOOD GAS PO2 88.7 mmHg (75.0-100.0)
[2023-07-19 11:13] LABS: ALLEN'S TEST POSITIVE (P)
[2023-07-19] MEDS: FLUCONAZOLE 200 mg/ NS 100 ML IV SCH (13:04)
[2023-07-19] MEDS: MONTELUKAST 10 MG TABLET PO SCH (17:39)
[2023-07-19] MEDS: PRAMIPEXOLE DI-HCL 0.25 MG TABLET PO SCH (20:46)
[2023-07-19] MEDS: OLANZapine 2.5 MG TABLET PO SCH (20:46)
[2023-07-19] MEDS ORDERED: hydrALAZINE HCL 20 MG/ML VIAL IVP PRN (22:30)
[2023-07-20] VITALS (21 sets, daily range): BP systolic 121–164; PULSE 80–99; RESP 17–29; TEMP 97.1–97.9; O2SAT 93–99
[2023-07-20] MEDS: METOCLOPRAMIDE HCL 10 MG/2 ML VIAL IVP SCH ×4 (00:08→19:12)
[2023-07-20] MEDS: INSULIN REGULAR, HUMAN 100 UNITS/ML, 3 ML VIAL (humuLIN R) SUBCUT PRN (00:11)
[2023-07-20] MEDS: IPRATROPIUM/ALBUTEROL SULFATE 3 ML AMPUL.NEB (DUONEB) INH SCH ×4 (01:25→19:28)
[2023-07-20 06:04] LABS: HEMATOCRIT 26.8 % (36-48); LYMPHOCYTES # (AUTO) 0.5 K/uL (1.0-5.5); LYMPHOCYTES % (AUTO) 8.7 % (20.5-51.5); MEAN CORPUSCULAR HEMOGLOBIN 33 pg (27-31); MEAN CORPUSCULAR HGB CONC 34 % (32-36); MEAN CORPUSCULAR VOLUME 98 fL (79.0-98.0); MONOCYTES # (AUTO) 0.7 K/uL (0.0-1.0); MONOCYTES % (AUTO) 13.4 % (1.7-9.3); NEUTROPHILS # (AUTO) 4.2 K/uL (1.8-7.7); NEUTROPHILS % (AUTO) 77.9 % (40.0-70.0); PLATELET COUNT (AUTO) 191 K/uL (130-430); RED BLOOD CELL COUNT(AUTO) 2.73 MIL/uL (4.2-6.2); RED CELL DISTRIBUTION WIDTH 13.1 % (9.0-15.0); WHITE BLOOD COUNT (AUTO) 5.4 K/uL (4.8-10.8)
[2023-07-20 06:17] LABS: ANION GAP 6 (5-15); CALCIUM 8.3 mg/dL (8.4-11.0); CARBON DIOXIDE 26 mmol/L (23-29); CHLORIDE 110 mmol/L (98-107); CREATININE 0.78 mg/dL (0.55-1.30); GLUCOSE 137 mg/dL (74-106); POTASSIUM 4.4 mmol/L (3.5-5.1); SODIUM SERUM 142 mmol/L (136-145); UREA NITROGEN, BLOOD 35 mg/dL (8-21)
[2023-07-20] MEDS: metroNIDAZOLE 500 mg/NS 100 ML IV SCH ×3 (06:57→22:18)
[2023-07-20] MEDS: BUDESONIDE 0.5 MG/2 ML AMPUL.NEB INH SCH ×2 (07:12→19:30)
[2023-07-20] MEDS: METHYLPREDNISOLONE SOD SUCC 40 MG/ML VIAL IVP SCH (09:29)
[2023-07-20] MEDS: ENOXAPARIN SODIUM 40 MG/0.4 ML SYRINGE SUBCUT SCH (09:29)
[2023-07-20] MEDS: POTASSIUM CHLORIDE 20 MEQ TAB.PRT.SR PO SCH ×2 (09:29→21:01)
[2023-07-20] MEDS: CEFEPIME 2 GM in D5W 100 ML IV SCH ×2 (09:29→21:10)
[2023-07-20] MEDS: FOLIC ACID 1 MG TABLET PO SCH (09:30)
[2023-07-20] MEDS: ATORVASTATIN 20 MG TABLET PO SCH (09:30)
[2023-07-20] MEDS: PANTOPRAZOLE SODIUM 40 MG TAB PO SCH (09:30)
[2023-07-20] MEDS: GABAPENTIN 100 MG CAPSULE PO SCH (09:30)
[2023-07-20] MEDS: FLUCONAZOLE 200 mg/ NS 100 ML IV SCH (13:53)
[2023-07-20] MEDS: MONTELUKAST 10 MG TABLET PO SCH (19:12)
[2023-07-20] MEDS: OLANZapine 2.5 MG TABLET PO SCH (21:01)
[2023-07-20] MEDS: predniSONE 20 MG TABLET PO SCH (21:01)
[2023-07-20] MEDS: PRAMIPEXOLE DI-HCL 0.25 MG TABLET PO SCH (21:01)
[2023-07-21] VITALS (7 sets, daily range): BP systolic 123–149; PULSE 87–94; RESP 20; TEMP 97.7–98.5; O2SAT 96–99
[2023-07-21] MEDS: METOCLOPRAMIDE HCL 10 MG/2 ML VIAL IVP SCH ×3 (00:31→13:36)
[2023-07-21] MEDS: IPRATROPIUM/ALBUTEROL SULFATE 3 ML AMPUL.NEB (DUONEB) INH SCH ×4 (01:00→13:40)
[2023-07-21] MEDS: INSULIN REGULAR, HUMAN 100 UNITS/ML, 3 ML VIAL (humuLIN R) SUBCUT PRN (01:13)
[2023-07-21] MEDS: metroNIDAZOLE 500 mg/NS 100 ML IV SCH (05:05)
[2023-07-21 05:13] LABS: HEMATOCRIT 25.6 % (36-48); HEMOGLOBIN 8.5 g/dL (12.0-16.0); LYMPHOCYTES # (AUTO) 0.7 K/uL (1.0-5.5); LYMPHOCYTES % (AUTO) 11.7 % (20.5-51.5); MEAN CORPUSCULAR HEMOGLOBIN 33 pg (27-31); MEAN CORPUSCULAR HGB CONC 33 % (32-36); MEAN CORPUSCULAR VOLUME 98 fL (79.0-98.0); MONOCYTES # (AUTO) 0.8 K/uL (0.0-1.0); MONOCYTES % (AUTO) 13.7 % (1.7-9.3); NEUTROPHILS # (AUTO) 4.5 K/uL (1.8-7.7); NEUTROPHILS % (AUTO) 74.6 % (40.0-70.0); PLATELET COUNT (AUTO) 211 K/uL (130-430); RED BLOOD CELL COUNT(AUTO) 2.61 MIL/uL (4.2-6.2); RED CELL DISTRIBUTION WIDTH 12.9 % (9.0-15.0); WHITE BLOOD COUNT (AUTO) 6.1 K/uL (4.8-10.8)
[2023-07-21 05:49] LABS: ANION GAP 4 (5-15); CARBON DIOXIDE 27 mmol/L (23-29); CHLORIDE 109 mmol/L (98-107); CREATININE 0.76 mg/dL (0.55-1.30); GLUCOSE 144 mg/dL (74-106); PHOSPHORUS 2.2 mg/dL (2.7-4.5); SODIUM SERUM 140 mmol/L (136-145); UREA NITROGEN, BLOOD 37 mg/dL (8-21)
[2023-07-21] MEDS: BUDESONIDE 0.5 MG/2 ML AMPUL.NEB INH SCH ×2 (07:39→08:43)
[2023-07-21] MEDS: FOLIC ACID 1 MG TABLET PO SCH (10:25)
[2023-07-21] MEDS: GABAPENTIN 100 MG CAPSULE PO SCH (10:26)
[2023-07-21] MEDS: POTASSIUM CHLORIDE 20 MEQ TAB.PRT.SR PO SCH (10:26)
[2023-07-21] MEDS: ATORVASTATIN 20 MG TABLET PO SCH (10:26)
[2023-07-21] MEDS: predniSONE 20 MG TABLET PO SCH (10:26)
[2023-07-21] MEDS: PANTOPRAZOLE SODIUM 40 MG TAB PO SCH (10:26)
[2023-07-21] MEDS: ENOXAPARIN SODIUM 40 MG/0.4 ML SYRINGE SUBCUT SCH (10:27)
[2023-07-21] MEDS: CEFEPIME 2 GM in D5W 100 ML IV SCH (10:27)
[2023-07-21] MEDS ORDERED: IPRA3AMP9 INH (13:33)
[2023-07-21] MEDS ORDERED: PRED10TA PO (13:33)
[2023-07-21] MEDS ORDERED: BUDE0.5A INH (13:34)
[2023-07-21] MEDS ORDERED: DIF100 PO (13:35)
[2023-07-21] MEDS: FLUCONAZOLE 200 mg/ NS 100 ML IV SCH (13:36)
[2023-07-21] MEDS ORDERED: APIXABAN 2.5 MG TABLET GT SCH (21:00)
[2023-07-21] MEDS ORDERED: predniSONE 10 MG TABLET PO SCH (21:00)
== END 2023-07-21 17:35 | DRG 871 ==
LOC: SED 12:08 → STU 13:53 → SIC 18:59 → STU 07-15 20:25 → SIC 07-16 11:28 → STU 07-20 16:38
PROVIDERS: ADMIT Internal Medicine; ATTEND Internal Medicine
PROC: 5A1945Z Respiratory Ventilation, 24-96 Consecutive Hours (ICD-10-PCS; 2023-07-16)
PROC: 0BH17EZ Insertion of Endotracheal Airway into Trachea, Via Natural or Artificial Opening (ICD-10-PCS; 2023-07-16)
PROC: 0DH64UZ Insertion of Feeding Device into Stomach, Percutaneous Endoscopic Approach (ICD-10-PCS; principal; 2023-07-16 09:15)
DX: A41.9 Sepsis, unspecified organism (principal); I21.A1 Myocardial infarction type 2; J96.00 Acute respiratory failure, unspecified whether with hypoxia or hypercapnia; R65.21 Severe sepsis with septic shock; J69.0 Pneumonitis due to inhalation of food and vomit; C34.90 Malignant neoplasm of unspecified part of unspecified bronchus or lung; N39.0 Urinary tract infection, site not specified; J44.0 Chronic obstructive pulmonary disease with (acute) lower respiratory infection; J44.1 Chronic obstructive pulmonary disease with (acute) exacerbation; R13.10 Dysphagia, unspecified; I11.0 Hypertensive heart disease with heart failure; I50.9 Heart failure, unspecified; E87.6 Hypokalemia; I25.10 Atherosclerotic heart disease of native coronary artery without angina pectoris; K57.90 Diverticulosis of intestine, part unspecified, without perforation or abscess without bleeding; K21.9 Gastro-esophageal reflux disease without esophagitis; D39.8 Neoplasm of uncertain behavior of other specified female genital organs; D70.3 Neutropenia due to infection; Z79.899 Other long term (current) drug therapy; Z90.49 Acquired absence of other specified parts of digestive tract; Z87.891 Personal history of nicotine dependence; Z92.21 Personal history of antineoplastic chemotherapy; Z85.528 Personal history of other malignant neoplasm of kidney; Z85.118 Personal history of other malignant neoplasm of bronchus and lung; Z79.1 Long term (current) use of non-steroidal anti-inflammatories (NSAID); I25.2 Old myocardial infarction
CPT/HCPCS: 36415; 36600; 43246; 70486-TC; 71045; 71250-TC; 76376; 80048; 80053; 80061; 81000; 82607; 82746; 82803; 82962; 83540; 83550; 83605; 83735; 83880; 84100; 84439; 84443; 84484; 85007; 85025; 85027; 85610-TC; 85730-TC; 87040; 87070-TC; 87081; 87086; 87101; 87205-TC; 92610-GN; 93005; 93306; 94003; 94640; 94760; 97110-GP; 97163-GP; 97530-GP; 99291; G0378; J0330; J0692; J1030; J1100; J1200; J1450; J1580; J1650; J1815; J1940; J2248; J2250; J2270; J2405; J2543; J2704; J2765; J3010; J3475; J3480; J3490; J7030; J7050; J7060; J7120; J7131; J7512; J7613; J7626; J8597; P9046

== ENCOUNTER 2024-03-06 17:18 | Inpatient (IN) | payer OTHER, MEDICAID ==
[~2024-03-06] VITALS: Ht 160 cm; Wt 26.3 kg
[~2024-03-06 17:18] MED LIST: APIX5TAB PO; BUDE0.5A INH; DIF100 PO; FOLI-43 PO; GABA-529 PO; IPRA3AMP9 INH; LIP20 PO; LOSA25TA18 PO; METO-290 PO; MONT-40 PO; NITSL SL; OLAN2.5T29 PO; PRAM1.5T4 PO; PRED10TA PO; PRO40 PO; [UNRECOGNIZED DRUG - CODE]
[2024-03-06 18:00] VITALS: BP_SYST 100; PULSE 118; RESP 20; TEMP 97.8; O2SAT 96
[2024-03-06] MEDS: NACL 0.9% 2,000 ML IV ONE (18:58)
[2024-03-06 19:07] LABS: BASOPHILS % (AUTO) 0.8 % (0.0-2.0); EOSINOPHILS # (AUTO) 0.3 K/uL (0.0-0.4); EOSINOPHILS % (AUTO) 7.7 % (0.0-4.0); HEMATOCRIT 36.2 % (36-48); HEMOGLOBIN 12.5 g/dL (12.0-16.0); LYMPHOCYTES # (AUTO) 1.3 K/uL (1.0-5.5); LYMPHOCYTES % (AUTO) 28.8 % (20.5-51.5); MEAN CORPUSCULAR HEMOGLOBIN 32 pg (27-31); MEAN CORPUSCULAR HGB CONC 35 % (32-36); MEAN CORPUSCULAR VOLUME 94 fL (79.0-98.0); MONOCYTES # (AUTO) 0.5 K/uL (0.0-1.0); MONOCYTES % (AUTO) 10.6 % (1.7-9.3); NEUTROPHILS # (AUTO) 2.3 K/uL (1.8-7.7); NEUTROPHILS % (AUTO) 52.1 % (40.0-70.0); PLATELET COUNT (AUTO) 173 K/uL (130-430); RED BLOOD CELL COUNT(AUTO) 3.86 MIL/uL (4.2-6.2); RED CELL DISTRIBUTION WIDTH 14.1 % (9.0-15.0); WHITE BLOOD COUNT (AUTO) 4.5 K/uL (4.8-10.8)
[2024-03-06] MEDS ORDERED: iohexoL 300 mgI/mL, 150 ML INFUS..BTL IV ONE (19:22)
[2024-03-06 19:26] LABS: ALANINE AMINOTRANSFERASE 46 U/L (12-78); ANION GAP 8 (5-15); ASPARTATE AMINOTRANSFERASE 80 U/L (10-37); CALCIUM 9.2 mg/dL (8.4-11.0); CARBON DIOXIDE 26 mmol/L (23-29); CHLORIDE 99 mmol/L (98-107); CREATININE 1.32 mg/dL (0.55-1.30); GLUCOSE 87 mg/dL (74-106); POTASSIUM 4.6 mmol/L (3.5-5.1); SODIUM SERUM 133 mmol/L (136-145); TOTAL BILIRUBIN 2.3 mg/dL (0.0-1.0); TOTAL PROTEIN, SERUM 6.4 g/dL (6.4-8.3); UREA NITROGEN, BLOOD 21 mg/dL (8-21)
[2024-03-06] MEDS: cefTRIAXone 1 GM IVPB PREMIX 50 ML IV ONE (19:36)
[2024-03-06] MEDS: ONDANSETRON HCL 4 MG/2 ML VIAL IVP ONE (20:22)
[2024-03-06 22:55] LABS: BILIRUBIN,URINE NEGATIVE (NEGATIVE); BLOOD, URINE NEGATIVE (NEGATIVE); COLOR,URINE YELLOW (YELLOW); GLUCOSE,URINE NEGATIVE (NEGATIVE); KETONES,URINE TRACE (NEGATIVE); LEUKOCYTE ESTERASE ,URINE TRACE (NEGATIVE); NITRITE, URINE NEGATIVE (NEGATIVE); PH,URINE 5.5 (5.0-8.0); PROTEIN URINE TRACE (NEGATIVE); UROBILINOGEN,URINE 0.2 (0.2-1.0)
[2024-03-06 23:07] LABS: CLARITY/URINE SLIGHTLY HAZY (CLEAR)
[2024-03-06 23:17] LABS: BACTERIA,URINE FEW /HPF (None Seen); FINE GRANULAR CASTS,URINE 0-10 /LPF (None Seen); HYALINE CASTS, URINE 0-10 /LPF (None Seen); RBC,URINE NONE SEEN /HPF (0-3)
[2024-03-06 23:18] LABS: MUCUS,URINE 1+ /LPF (None Seen)
[2024-03-07] VITALS (10 sets, daily range): BP systolic 67–184; PULSE 99–125; RESP 13–42; TEMP 100.4–101.8; O2SAT 72–97
[2024-03-07] MEDS ORDERED: ACETAMINOPHEN 500 MG TABLET ONE (03:30)
[2024-03-07] MEDS ORDERED: ACETAMINOPHEN 325 MG TABLET PO PRN (04:45)
[2024-03-07] MEDS: ACETAMINOPHEN 500 MG TABLET PO ONE (04:47)
[2024-03-07] MEDS: ONDANSETRON HCL 4 MG/2 ML VIAL IVP ONE (05:07)
[2024-03-07] MEDS ORDERED: *HEPARIN PER PHARMACY XX ONE ×2 (05:15→08:15)
[2024-03-07] MEDS: NACL 0.9% 1,000 ML IV ONE (05:19)
[2024-03-07] MEDS: ASPIRIN 300 MG/SUPP.RECT SUPP RC ONE (05:35)
[2024-03-07] MEDS: metroNIDAZOLE 500 mg/NS 100 ML IV ONE (05:35)
[2024-03-07 05:57] LABS: COVID19 ANTIGEN SOFIA FIA NEGATIVE (NEGATIVE)
[2024-03-07 05:58] LABS: INFLUENZA TYPE A Negative (NEGATIVE); INFLUENZA TYPE B NEGATIVE (NEGATIVE)
[2024-03-07] MEDS: D5/0.45 NS 1,000 ML IV SCH (06:36)
[2024-03-07] MEDS ORDERED: NOREPINEPHRINE 4 MG/4 ML VIAL IV ONE ×2 (06:58→14:28)
[2024-03-07] MEDS: NOREPINEPHR 4 MG/250 mL NS 250 ML IV PRN (07:10)
[2024-03-07 07:26] LABS: INR 1.5 (0.8-1.2); PROTHROMBIN TIME 15.1 SECS (9.5-12.5)
[2024-03-07] MEDS ORDERED: *HEPARIN PER PHARMACY XX PRN (08:15)
[2024-03-07 08:46] LABS: ABG O2 SAT% ESTIMATE 94.8 % (94.0-100.0); BLOOD GAS BASE EXCESS -11.7 mmol/L (-3.0-3.0); BLOOD GAS PCO2 35.9 mmHg (35.0-45.0); BLOOD GAS PO2 85.1 mmHg (75.0-100.0)
[2024-03-07 08:49] LABS: BLOOD GAS PH 7.234 (7.350-7.450)
[2024-03-07 08:50] LABS: BLOOD GAS HCO3 14.8 mmol/L (21.0-27.0)
[2024-03-07] MEDS ORDERED: HEPARIN SODIUM,PORCINE 3000 UNITS/0.6 ML BOLUS IVP PRN (09:00)
[2024-03-07] MEDS ORDERED: HEPARIN SODIUM,PORCINE 2000 UNITS/0.4 ML BOLUS IVP PRN (09:00)
[2024-03-07] MEDS: HEPARIN SODIUM,PORCINE 5,000 UNITS/ML VIAL IV ONE (09:44)
[2024-03-07] MEDS: HEPARIN 25,000 UNITS in 250 ML PREMIX IV PRN (09:48)
[2024-03-07] MEDS ORDERED: NITROGLYCERIN 0.4 MG TAB.SUBL SL PRN (12:45)
[2024-03-07] MEDS ORDERED: METOCLOPRAMIDE HCL 10 MG TABLET PO PRN (12:45)
[2024-03-07] MEDS: IPRATROPIUM/ALBUTEROL SULFATE 3 ML AMPUL.NEB (DUONEB) INH SCH (13:00)
[2024-03-07] MEDS: FLUCONAZOLE 100 MG TABLET (DIFLUCAN) PO SCH (14:00)
[2024-03-07] MEDS ORDERED: DIGOXIN 0.5 MG/2 ML AMP ONE (14:02)
[2024-03-07] MEDS: DIGOXIN 0.5 MG/2 ML AMP IVP ONE (14:10)
[2024-03-07] MEDS: LOSARTAN POTASSIUM 25 MG TABLET PO ONE (15:17)
[2024-03-07] MEDS: FOLIC ACID 1 MG TABLET PO ONE (15:17)
[2024-03-07] MEDS: GABAPENTIN 100 MG CAPSULE PO ONE (15:18)
[2024-03-07] MEDS: PANTOPRAZOLE SODIUM 40 MG TAB PO ONE (15:18)
[2024-03-07] MEDS ORDERED: ACETAMINOPHEN 650 MG SUPP.RECT RC PRN (15:30)
[2024-03-07] MEDS ORDERED: D5/0.45 NS 1,000 ML IV SCH (15:30)
[2024-03-07] MEDS ORDERED: MONTELUKAST 10 MG TABLET PO SCH (18:00)
[2024-03-07] MEDS: NOREPINEPHR 16 MG/250 mL NS 250 ML IV PRN (18:18)
[2024-03-07] MEDS: VASOPRESSIN 40 UNITS in NS 38 ML IV PRN (18:25)
[2024-03-07] MEDS ORDERED: BUDESONIDE 0.5 MG/2 ML AMPUL.NEB INH SCH (19:00)
[2024-03-07] MEDS ORDERED: ATORVASTATIN 20 MG TABLET PO SCH (21:00)
[2024-03-07] MEDS ORDERED: APIXABAN 2.5 MG TABLET PO SCH (21:00)
[2024-03-07] MEDS ORDERED: PRAMIPEXOLE DI-HCL 0.25 MG TABLET PO SCH (21:00)
[2024-03-07] MEDS ORDERED: OLANZapine 2.5 MG TABLET PO SCH (21:00)
[2024-03-08] MEDS ORDERED: GABAPENTIN 100 MG CAPSULE PO SCH (09:00)
[2024-03-08] MEDS ORDERED: LOSARTAN POTASSIUM 25 MG TABLET PO SCH (09:00)
[2024-03-08] MEDS ORDERED: PANTOPRAZOLE SODIUM 40 MG TAB PO SCH (09:00)
[2024-03-08] MEDS ORDERED: FOLIC ACID 1 MG TABLET PO SCH (09:00)
== END 2024-03-07 19:24 | DRG 871 ==
LOC: SED 17:18 → STU 22:00 → SIC 03-07 16:18
PROVIDERS: ADMIT Preventive Medicine Preventive Medicine/Occupational Environmental Medicine; ATTEND Preventive Medicine Preventive Medicine/Occupational Environmental Medicine
PROC: 0DH67UZ Insertion of Feeding Device into Stomach, Via Natural or Artificial Opening (ICD-10-PCS; principal; 2024-03-07)
PROC: 5A1935Z Respiratory Ventilation, Less than 24 Consecutive Hours (ICD-10-PCS; 2024-03-07)
PROC: 0BH17EZ Insertion of Endotracheal Airway into Trachea, Via Natural or Artificial Opening (ICD-10-PCS; 2024-03-07)
PROC: 06HY33Z Insertion of Infusion Device into Lower Vein, Percutaneous Approach (ICD-10-PCS; 2024-03-07)
PROC: B54BZZA Ultrasonography of Right Lower Extremity Veins, Guidance (ICD-10-PCS; 2024-03-07)
PROC: 5A12012 Performance of Cardiac Output, Single, Manual (ICD-10-PCS; 2024-03-07)
DX: A41.9 Sepsis, unspecified organism (principal); I21.4 Non-ST elevation (NSTEMI) myocardial infarction; J96.00 Acute respiratory failure, unspecified whether with hypoxia or hypercapnia; R65.21 Severe sepsis with septic shock; E87.1 Hypo-osmolality and hyponatremia; N17.9 Acute kidney failure, unspecified; K57.32 Diverticulitis of large intestine without perforation or abscess without bleeding; I25.10 Atherosclerotic heart disease of native coronary artery without angina pectoris; E78.5 Hyperlipidemia, unspecified; J44.9 Chronic obstructive pulmonary disease, unspecified; I11.0 Hypertensive heart disease with heart failure; I48.91 Unspecified atrial fibrillation; E88.09 Other disorders of plasma-protein metabolism, not elsewhere classified; Z20.822 Contact with and (suspected) exposure to COVID-19; I50.9 Heart failure, unspecified; Z79.899 Other long term (current) drug therapy; R57.0 Cardiogenic shock; W18.30XA Fall on same level, unspecified, initial encounter; Z79.01 Long term (current) use of anticoagulants; Z92.3 Personal history of irradiation; Z85.118 Personal history of other malignant neoplasm of bronchus and lung; K57.30 Diverticulosis of large intestine without perforation or abscess without bleeding; I46.9 Cardiac arrest, cause unspecified
CPT/HCPCS: 36415; 36600; 70450-TC; 71045; 71275; 72125-TC; 72191; 74175; 80053; 81000; 81001; 81015; 82803; 83605; 84484; 85025; 85379; 85610; 85730; 87040; 87081; 87086; 92950; 93005; 93306; 94002; 94640; 96361; 96365; 96375; 99291; G0378; J0696; J1160; J1644; J2405; J3490; J7626; Q9967